=== PATIENT | male | born 1970 | race Two or more races ===

== ENCOUNTER 2021-04-08 14:08 | Emergency (ER) | payer OTHER ==
[2021-04-08] MEDS ORDERED: KETOROLAC TROMETHAMINE 30 MG/1 ML VIAL IM ONE (14:15)
[2021-04-08] MEDS ORDERED: SODIUM CHLORIDE 0.9% 500 ML INFUS.BAG IV ONE (14:28)
[2021-04-08 14:32] VITALS: BP 142/100; PULSE 93; TEMP 98.8; BMI 28.8
[2021-04-08] MEDS ORDERED: KETOROLAC TROMETHAMINE 30 MG/1 ML VIAL IVPUSH ONE (14:35)
[2021-04-08] MEDS ORDERED: KETOROLAC TROMETHAMINE 30 MG/1 ML VIAL ONE (14:36)
[2021-04-08 14:43] LABS: BASO % 0.5 % (0-2.0); EOS % 0.2 % (0-4.5); HEMATOCRIT 42.8 % (35.4-49); HEMOGLOBIN 15.2 GM/dl (11.7-16.9); LYMPH % 12.6 % (8-40); MCH 31.8 pg (25.7-33.7); MCHC 35.6 g/dl (32.0-35.9); MEAN CELL VOLUME 89.5 fl (80-96); MEAN PLT VOLUME 8.4 fl (7.5-11.1); MONO % 8.9 % (3.8-10.2); NEUT % 77.8 % (42.8-82.8); PLATELET COUNT 201 K/MM3 (134-434); RBC 4.78 M/mm3 (4.00-5.60); RDW 11.6 % (11.9-15.9); WHITE BLOOD COUNT 8.4 K/mm3 (4.0-10.8)
[2021-04-08 15:01] LABS: ALBUMIN 4.3 g/dl (3.4-5.0); BILIRUBIN,TOTAL 1.4 mg/dl (0.2-1); CALCIUM 9.2 mg/dl (8.5-10); CREATININE 1.2 mg/dl (0.55-1.3); TOT PROT 7.6 g/dl (6.4-8.2)
[2021-04-08 15:47] LABS: EPITHELIAL CELLS RARE /hpf
== END 2021-04-08 15:56 | disposition home or self-care (01) ==
LOC: FER 14:08
PROC: 3E033GC Introduction of Other Therapeutic Substance into Peripheral Vein, Percutaneous Approach (ICD-10-PCS; principal; 2021-04-08)
DX: N13.2 Hydronephrosis with renal and ureteral calculous obstruction (principal); K59.00 Constipation, unspecified
CPT/HCPCS: 36415; 80053; 81003; 81015; 85025; 99284-25